=== PATIENT | male | born 1965 | race Caucasian/White ===

== ENCOUNTER 2023-06-14 10:20 | Emergency (ER) | payer OTHER ==
[2023-06-14] MEDS ORDERED: HYDROcodone/Acetaminophen 5/325 mg Tablet ONE (11:28)
[2023-06-14] MEDS ORDERED: Methocarbamol 500 MG TAB PO SCH (12:30)
== END 2023-06-14 13:20 | disposition home or self-care (01) ==
LOC: CSHERS 10:20
DX: M79.10 Myalgia, unspecified site (principal); F17.200 Nicotine dependence, unspecified, uncomplicated